=== PATIENT | female | born 1955 | race Caucasian/White ===

== ENCOUNTER → 2025-04-24 | Day surgery (SDC) | payer MEDICARE ==
[~2025-04-24] MED LIST: ACETAMINOPHEN 1000 MG/100 ML 100 ML IV ONE; CEFAZOLIN SODIUM 2 GM ONE; DEXAMETHASONE SOD PHOS INJ 4 MG/ML SDV ONE; FENTANYL CITRATE/PF 100MCG/2 ML INJ ONE; JOINT COMFORT-1 EACH PO; KRILL OIL 1,501 EACH PO; LACTATED RINGER'S 1,000 ML ONE; LEVOTHYROXINE112 MCG PO; LIDOCAINE HCL 2% LOCAL INJ 5 ML SDV VIAL INJ ONE; MIDAZOLAM HCL 2 MG/2 ML VIAL ONE; ONDANSETRON HCL INJ 2MG/ML 2ML 2 MG/ML VIAL ONE; PHENYLEPHRINE HCL 1% 10 MG/ML VIAL ONE; PROPOFOL IV EMULSION 10 MG/ML 20 ML VIAL ONE; ROCURONIUM BROMIDE 1 ML IV ONE; ROPIVACAINE/EPI/CLONIDINE/KET 50 ML SYRINGE INJ ONE; SODIUM CHLORIDE 0.9% 100 ML ONE; SUCCINYLCHOLINE CHLORIDE 20 MG/ML 10ML VIAL ONE; SUGAMMADEX SODIUM 200 MG/2 ML VIAL IV ONE; SUPER GREENS PO; VITAMIN C1000 MG PO; VITAMIN D3 COM1 EACH PO
[2025-04-24 06:52] LABS: BASOPHILS % 0.8 % (0.0-1.0); EOSINOPHILS % 1.5 % (0.0-6.0); LYMPHOCYTES % 48.5 % (18.0-39.1); MONOCYTES % 8.9 % (4.4-11.3); NEUTROPHILS % 40.1 % (38.7-80.0); RED CELL DISTRIBUTION WIDTH 13.7 % (11.7-14.4)
[2025-04-24 08:33] VITALS: TEMP 97.9
[2025-04-24] MEDS: KETOROLAC TROMETHAMINE 30 MG/ML VIAL ONE (08:43)
[2025-04-24] MEDS: MEPERIDINE HCL INJ 25 MG/ML VIAL ONE (09:15)
[2025-04-24] MEDS: FENTANYL CITRATE/PF 100MCG/2 ML INJ ONE (09:26)
[2025-04-24 10:40] VITALS: BP 99/52; PULSE 70; RESP 18; O2SAT 98
== END | disposition home or self-care (01) ==
LOC: OR 05:42
PROVIDERS: ATTEND Orthopaedic Surgery
DX: M16.11 Unilateral primary osteoarthritis, right hip (principal); M87.051 Idiopathic aseptic necrosis of right femur; E78.5 Hyperlipidemia, unspecified; E03.9 Hypothyroidism, unspecified; Z79.899 Other long term (current) drug therapy
CPT/HCPCS: 27130; 36415; 73502; 76000; 85025; 86850; 86900; 97110; 97116 ×2; 97161; 97530; C1713 ×4; C1776 ×2; J0131; J0330; J1100; J1885; J2003; J2175; J2250; J2371; J2405; J2704; J3010; J7050; J7121